=== PATIENT | male | born 1970 | race Caucasian/White ===

== ENCOUNTER 2019-05-19 17:46 | Inpatient (IN) | payer OTHER ==
[~2019-05-19] VITALS: Ht 167.6 cm; Wt 152.4 kg
[2019-05-19 18:54] LABS: BASOPHILS % 0.6 % (0.0-2.0); EOSINOPHILS % 1.6 % (0.0-5.0); HEMATOCRIT. 43.9 % (42.0-52.0); HEMOGLOBIN. 14.1 g/dL (14.0-18.0); LYMPHOCYTES % 17.5 % (20.0-50.0); MEAN CORPUSCULAR HEMOGLOBIN 24.9 pg (28.0-32.0); MEAN CORPUSCULAR VOLUME 77.4 fL (80.0-94.0); MEAN PLATELET VOLUME 8.4 fl (7.4-10.4); MONOCYTES % 8.6 % (2.0-8.0); NEUTROPHILS % 71.7 % (40.0-76.0); PLATELET 304 x1000/uL (130-400); RED BLOOD CELL COUNT 5.67 mill/uL (4.7-6.1); RED CELL DISTRIBUTION WIDTH 17.5 % (11.6-14.6)
[2019-05-19 18:58] LABS: CHLORIDE 104 mEq/L (98-107)
[2019-05-19] MEDS ORDERED: FUROSEMIDE 20MG/2ML VIAL IVP ONE (20:45)
[2019-05-20] MEDS ORDERED: CLONIDINE 0.1MG TABLET PO PRN (00:30)
[2019-05-20 03:52] VITALS: BP 144/83
[2019-05-20 04:00] VITALS: BP 144/83
[2019-05-20 08:00] VITALS: BP 161/92
[2019-05-20] MEDS: FUROSEMIDE 40MG/4ML VIAL IVP SCH ×2 (08:50→21:58)
[2019-05-20] MEDS: ENOXAPARIN 40MG/0.4ML SYR SUBCUT SCH ×2 (08:53→22:06)
[2019-05-20] MEDS: ASPIRIN 325MG TABLET PO SCH (08:53)
[2019-05-20] MEDS ORDERED: CARVEDILOL 3.125 MG TABLET PO SCH (09:00)
[2019-05-20] MEDS ORDERED: LISINOPRIL 20MG TABLET PO SCH (09:00)
[2019-05-20 11:46] LABS: CLARITY URINE CLEAR (CLEAR); COLOR URINE YELLOW (YELLOW); KETONES URINE NEGATIVE (NEGATIVE); LEUKOCYTE ESTERASE URINE NEGATIVE (NEGATIVE); NITRITE URINE NEGATIVE (NEGATIVE); OCCULT BLOOD URINE NEGATIVE (NEGATIVE); PROTEIN URINE NEGATIVE (NEGATIVE)
[2019-05-20 12:00] VITALS: BP 136/69
[2019-05-20 13:01] LABS: *AMPHETAMINES SCREEN URINE NEGATIVE (NEGATIVE); *BARBITURATES SCREEN URINE NEGATIVE (NEGATIVE); *BENZODIAZEPINES SCREEN URINE NEGATIVE (NEGATIVE); *COCAINE SCREEN URINE NEGATIVE (NEGATIVE); METHADONE URINE SCREEN NEGATIVE (NEGATIVE); OPIATES URINE SCREEN NEGATIVE (NEGATIVE)
[2019-05-20 13:02] LABS: CANNABINOID URINE SCREEN NEGATIVE (NEGATIVE); PHENCYCLIDINE URINE SCREEN NEGATIVE (NEGATIVE)
[2019-05-20 16:00] VITALS: BP 136/68
[2019-05-20 16:02] LABS: BASOPHILS % 1.1 % (0.0-2.0); EOSINOPHILS % 2.6 % (0.0-5.0); HEMATOCRIT. 44.8 % (42.0-52.0); HEMOGLOBIN. 14.4 g/dL (14.0-18.0); LYMPHOCYTES % 15.9 % (20.0-50.0); MEAN PLATELET VOLUME 8.4 fl (7.4-10.4); MONOCYTES % 9.7 % (2.0-8.0); NEUTROPHILS % 70.7 % (40.0-76.0); PLATELET 282 x1000/uL (130-400); RED BLOOD CELL COUNT 5.75 mill/uL (4.7-6.1); RED CELL DISTRIBUTION WIDTH 17.3 % (11.6-14.6)
[2019-05-20 16:05] LABS: CHLORIDE 101 mEq/L (98-107)
[2019-05-20 16:13] LABS: LDL CHOLESTEROL 89 mg/dL (5-100)
[2019-05-20 16:14] LABS: HDL CHOLESTEROL 45 mg/dL (40-59)
[2019-05-20 20:00] VITALS: BP 152/82
[2019-05-20] MEDS: CARVEDILOL 12.5MG TABLET PO SCH (21:58)
[2019-05-21] VITALS: BP 134/65
[2019-05-21 04:00] VITALS: BP 118/45
[2019-05-21 07:09] LABS: BASOPHILS % 0.3 % (0.0-2.0); EOSINOPHILS % 2.9 % (0.0-5.0); HEMATOCRIT. 47.5 % (42.0-52.0); HEMOGLOBIN. 15.1 g/dL (14.0-18.0); LYMPHOCYTES % 15.7 % (20.0-50.0); MEAN CORPUSCULAR VOLUME 78.5 fL (80.0-94.0); MEAN PLATELET VOLUME 8.9 fl (7.4-10.4); MONOCYTES % 9.3 % (2.0-8.0); NEUTROPHILS % 71.8 % (40.0-76.0); PLATELET 328 x1000/uL (130-400); RED BLOOD CELL COUNT 6.05 mill/uL (4.7-6.1); RED CELL DISTRIBUTION WIDTH 17.7 % (11.6-14.6)
[2019-05-21 07:12] LABS: CHLORIDE 98 mEq/L (98-107)
[2019-05-21 08:00] VITALS: BP 123/63
[2019-05-21] MEDS: ENOXAPARIN 40MG/0.4ML SYR SUBCUT SCH ×2 (10:06→21:03)
[2019-05-21] MEDS: ASPIRIN 325MG TABLET PO SCH (10:06)
[2019-05-21] MEDS: FUROSEMIDE 40MG/4ML VIAL IVP SCH ×2 (10:06→21:03)
[2019-05-21] MEDS: CARVEDILOL 12.5MG TABLET PO SCH ×2 (10:06→21:03)
[2019-05-21] MEDS: LISINOPRIL 40MG TABLET PO SCH (10:07)
[2019-05-21 12:00] VITALS: BP 118/79
[2019-05-21 16:00] VITALS: BP_SYST 151; BP_DIAS 85; BP_DIAS 89
[2019-05-21 20:00] VITALS: BP 118/81
[2019-05-21] MEDS ORDERED: CARVEDILOL 12.5MG TABLET PO NR (22:15)
[2019-05-21] MEDS: ZOLPIDEM TARTRATE 5MG TABLET PO PRN (22:25)
[2019-05-22] VITALS: BP 90/51
[2019-05-22 04:00] VITALS: BP 93/52
[2019-05-22 08:00] VITALS: BP 118/69
[2019-05-22 08:17] LABS: CHLORIDE 101 mEq/L (98-107)
[2019-05-22] MEDS ORDERED: CARVEDILOL 12.5MG TABLET PO SCH (09:00)
[2019-05-22] MEDS: FUROSEMIDE 40MG/4ML VIAL IVP SCH (09:14)
[2019-05-22] MEDS: ASPIRIN 325MG TABLET PO SCH (09:14)
[2019-05-22] MEDS: ENOXAPARIN 40MG/0.4ML SYR SUBCUT SCH ×2 (09:14→22:27)
[2019-05-22] MEDS: LISINOPRIL 40MG TABLET PO SCH (09:14)
[2019-05-22 12:00] VITALS: BP 134/76
[2019-05-22 12:29] LABS: BASOPHILS % 0.8 % (0.0-2.0); EOSINOPHILS % 2.4 % (0.0-5.0); HEMATOCRIT. 46.2 % (42.0-52.0); HEMOGLOBIN. 14.8 g/dL (14.0-18.0); LYMPHOCYTES % 16.4 % (20.0-50.0); MEAN CORPUSCULAR VOLUME 78.1 fL (80.0-94.0); MEAN PLATELET VOLUME 8.3 fl (7.4-10.4); MONOCYTES % 7.6 % (2.0-8.0); NEUTROPHILS % 72.8 % (40.0-76.0); PLATELET 326 x1000/uL (130-400); RED BLOOD CELL COUNT 5.92 mill/uL (4.7-6.1); RED CELL DISTRIBUTION WIDTH 17.8 % (11.6-14.6)
[2019-05-22] MEDS: HYDRALAZINE HCL 50MG TABLET PO SCH ×2 (13:47→22:28)
[2019-05-22 16:00] VITALS: BP 113/46
[2019-05-22 20:00] VITALS: BP 124/66
[2019-05-23] VITALS: BP 118/62
[2019-05-23 04:00] VITALS: BP 94/48
[2019-05-23] MEDS: HYDRALAZINE HCL 50MG TABLET PO SCH ×3 (06:00→21:27)
[2019-05-23 08:00] VITALS: BP 128/76
[2019-05-23] MEDS: FUROSEMIDE 40MG/4ML VIAL IVP SCH (08:48)
[2019-05-23] MEDS: LISINOPRIL 40MG TABLET PO SCH (08:48)
[2019-05-23] MEDS: ASPIRIN 325MG TABLET PO SCH (08:48)
[2019-05-23] MEDS: ENOXAPARIN 40MG/0.4ML SYR SUBCUT SCH ×2 (08:49→21:27)
[2019-05-23 12:00] VITALS: BP 119/57
[2019-05-23 16:00] VITALS: BP 140/74
[2019-05-23 20:00] VITALS: BP 131/72
[2019-05-23] MEDS: ZOLPIDEM TARTRATE 5MG TABLET PO PRN (21:27)
[2019-05-24] VITALS: BP 146/73
[2019-05-24 04:00] VITALS: BP 138/66
[2019-05-24] MEDS: HYDRALAZINE HCL 50MG TABLET PO SCH ×2 (06:39→14:00)
[2019-05-24 08:00] VITALS: BP 131/59
[2019-05-24] MEDS: ASPIRIN 325MG TABLET PO SCH (08:42)
[2019-05-24] MEDS: ENOXAPARIN 40MG/0.4ML SYR SUBCUT SCH (08:42)
[2019-05-24] MEDS: LISINOPRIL 40MG TABLET PO SCH (08:42)
[2019-05-24] MEDS: FUROSEMIDE 40MG/4ML VIAL IVP SCH (08:42)
[2019-05-24 12:00] VITALS: BP 105/47
[2019-05-24] MEDS ORDERED: FURO-151 PO (12:58)
[2019-05-24] MEDS ORDERED: LISI40TA4 PO (12:58)
[2019-05-24] MEDS ORDERED: HYDR-4135 PO (12:59)
[2019-05-24 13:00] VITALS: BP 105/47
== END 2019-05-24 15:08 | disposition home or self-care (01) | DRG 291 ==
LOC: ER 17:46 → 7WST 20:45 → ENRESERV 05-20 02:11
PROVIDERS: ADMIT Internal Medicine; ATTEND Internal Medicine
PROC: 5A09357 Assistance with Respiratory Ventilation, Less than 24 Consecutive Hours, Continuous Positive Airway Pressure (ICD-10-PCS; principal; 2019-05-22)
PROC: 5A09357 Assistance with Respiratory Ventilation, Less than 24 Consecutive Hours, Continuous Positive Airway Pressure (ICD-10-PCS; 2019-05-23)
PROC: 5A09357 Assistance with Respiratory Ventilation, Less than 24 Consecutive Hours, Continuous Positive Airway Pressure (ICD-10-PCS; 2019-05-24)
DX: I11.0 Hypertensive heart disease with heart failure (principal); E43 Unspecified severe protein-calorie malnutrition; I47.1 Supraventricular tachycardia; Z68.43 Body mass index [BMI] 50.0-59.9, adult; E11.9 Type 2 diabetes mellitus without complications; E66.01 Morbid (severe) obesity due to excess calories; E78.5 Hyperlipidemia, unspecified; E78.00 Pure hypercholesterolemia, unspecified; I27.20 Pulmonary hypertension, unspecified; I49.5 Sick sinus syndrome; G47.30 Sleep apnea, unspecified; I50.41 Acute combined systolic (congestive) and diastolic (congestive) heart failure; R07.89 Other chest pain; Z71.3 Dietary counseling and surveillance; Z79.899 Other long term (current) drug therapy
CPT/HCPCS: 36415; 71045; 80048; 80061; 80305; 81003; 82962; 83880; 84145; 84443; 84484; 93005; 93306; 93970; 94660; 99285; J1650; J1940